=== PATIENT | female | born 1965 | race Caucasian/White ===

== ENCOUNTER 2023-06-02 18:32 | Emergency (ER) | payer OTHER, SELFPAY ==
[2023-06-02 18:45] VITALS: BP 120/86
[2023-06-02 19:20] VITALS: BMI 33.7
[2023-06-02 19:23] VITALS: BP 110/55
[2023-06-02 19:43] LABS: % Basophils 0.4 % (0-2); % Eosinophils 0.3 % (0-6); % Immature Granulocytes 0.1 % (0-0.5); % Monocytes 6.9 % (1.7-9.3); % Neutrophils 59.3 % (42.2-75.2); Absolute Lymphocytes 2.3 10^3/uL (1.2-3.4); Absolute Monocytes 0.5 10^3/uL (0.1-0.6); Absolute Neutrophils 4.2 10^3/uL (1.4-6.5); Hematocrit 43.7 % (37.0-47.0); Hemoglobin 14.9 g/dL (12.0-16.0); Mean Corp Hgb Conc. 34.1 g/dL (33.0-37.0); Mean Corpuscular Hgb 30.4 pg (27.0-31.0); Mean Corpuscular Volume 89.2 fL (81.0-99.0); Mean Platelet Volume 9.8 fL (7.4-10.4); Nucleated Red Blood Cells % 0 %; Platelet Count 226 10^3/uL (130-400); Red Cell Dist. Width 11.8 % (11.5-14.5); White Blood Cell Count 7.1 10^3/uL (4.8-10.8)
[2023-06-02 19:58] LABS: ALT (SGPT) 27 U/L (0-35); AST (SGOT) 33 U/L (14-36); Albumin 4.2 g/dl (3.5-5.0); Alkaline Phosphatase 70 U/L (38-126); Blood Urea Nitrogen 14 mg/dl (7-17); Calcium 9.9 mg/dl (8.4-10.2); Carbon Dioxide 28 mmol/L (22-30); Chloride 101 mmol/L (98-107); Estimated Creatinine Clearance 80 ml/min; Glucose 98 mg/dl (70-99); Potassium 4.4 mmol/L (3.5-5.1); Sodium 137 mmol/L (135-145); Total Bilirubin 0.6 mg/dl (0.2-1.3); Total Protein 7.2 g/dl (6.3-8.2); eGFR > 60.00
[2023-06-02 20:00] VITALS: BP 111/65
[2023-06-02 20:08] LABS: Troponin I < 0.012 ng/ml
--- NOTE | 2023-06-02 20:36 | ED.GENMED ---
History of Present Illness
General
Chief Complaint: Chest Pain
Source: patient
Exam Limitations: none
Time Seen by Provider: 06/02/23 19:49
Travel History
Have you had any contact with someone who has COVID-19?: No
Do you have any symptoms of coronavirus? Fever > 100 degrees, chills, cough, shortness of breath, sore throat, loss of taste or smell, muscle aches, or headache?: No
History of Present Illness
History of Present Illness:
49-year-old female presents with complaints of intermittent fluttering in her chest over the past week. Today was associated with more disc in her neck with lightheadedness. Currently my exam she denies any pain. She states has been under a lot
of stress at work. No abdominal pain. No nausea vomiting. No other complaints at this time. No recent travel or surgery.
Phy Exam
Physical Exam
Physical Exam:
Physical Exam
General: no apparent distress, not acutely ill
Neck: supple. no meningeal signs.
Heart: s1/s2 regular rate and rhythm, no murmur. equal radial pulses.
Lungs: no acute respiratory distress. clear bilaterally
Abdomen: normal bowel sounds. not tender. no CVAT
Neuro: alert and oriented. no focal neurological deficits
Skin: no rash
Psychiatric: well kept. interactive and cooperative
Extremities: no edema. no calf tenderness. negative homans. good distal pulses
Scores
Heart Score for Chest Pain Patients
STEMI patient?: No
History: Slightly or Non-Suspicious
ECG: Normal
Age: >45 - <65 years
Risk Factors: No Risk Factors
Troponin: </= Normal Limit
Heart Score for Chest Pain Patients: 1
Heart Score Risk: 2.5% MACE over next 6 weeks
Course
Orders/Labs/Results
Orders:
Orders
06/02/23 18:36
ECG [Electrocardiogram (*1)] Urgent
Reason for Study: Chest Pain
EKG- Treatment ONCE
06/02/23 19:37
Complete Blood Count/With Diff Urgent
Comprehensive Metabolic Panel Urgent
Troponin I Urgent
06/02/23 19:41
TSH Reflex To Free T4 Urgent
Comment: ADD ON
06/02/23 20:04
CR Chest - 2 Views Urgent
Comment:
Reason For Exam: chest pain
06/02/23 20:05
Add On- LAB Urgent
Tests Added?: tsh reflex to t4
06/02/23 22:04
Troponin I Urgent
06/02/23 19:37
06/02/23 19:37
Vital Signs
Initial and Last Documented VS:
Initial Vital Signs
Temp Pulse Resp BP Pulse Ox
98.2 F 82 16 120/86 98
06/02/23 18:45 06/02/23 18:45 06/02/23 18:45 06/02/23 18:45 06/02/23 18:45
Last Documented Vital Signs
Temp Pulse Resp BP Pulse Ox
98.2 F 74 19 108/74 94
06/02/23 18:45 06/02/23 22:45 06/02/23 22:45 06/02/23 22:04 06/02/23 22:45
MDM/Problems Addressed
Differential Diagnosis Includes:
Palpitations and fluttering with lightheadedness. Differential could include PVCs versus arrhythmia versus stress. She does note neck discomfort. Now is resolved. Do not suspect dissection check troponin for ACS. Chest x-ray pending
*Critical Care Note
Total Time (30-74mins, 75-104mins- exclusive of procedures): Not Applicable
Update Note
Update Note:
Initial and repeat troponin both undetectable. Chest x-ray clear thyroid within normal limits. No arrhythmias on the monitor. Patient remained stable here. Suspect underlying premature beats based on symptoms however none noted on monitor. She
has an appoint with cardiology in 10 days and with her family doctor tomorrow.
ED Attending Note
-
Portions of this chart may have been created with voice recognition software.� Occasional wrong word or��sound alike� substitutions may have occurred due to the inherent limitations of voice recognition software.
Discharge Plan
Departure
Patient Disposition: Home (Routine Discharge)
Date of Disposition: 06/02/23
Time of Disposition: 23:09
Patient with high blood pressure during this ER visit?: No
Discharge Problem:
Heart palpitations
Instructions: Palpitations (DC)
Referrals:
Betina Peña, DO [Family Provider] -
Activity Restrictions/Additional Instructions:
Try to rest. Drink plenty fluids. Avoid caffeine or alcohol. Return for worsening symptoms otherwise continue to follow-up as planned with family doctor and cardiology
Interventions
Interventions:
*Risk Screen - Suicide Last Done: 06/02/23 19:20
*General Assessment Last Done: 06/02/23 19:20
*Neglect/Abuse Screening Last Done: 06/02/23 19:20
ED- Fall Risk Assessment Last Done: 06/02/23 19:20
*ED COVID-19 Vaccine History Last Done: 06/02/23 18:45
ED- Cardiac Assessment Last Done: 06/02/23 19:20
[2023-06-02 21:06] VITALS: BP 128/72
[2023-06-02 22:04] VITALS: BP 108/74
[2023-06-02 22:36] LABS: Troponin I < 0.012 ng/ml
== END 2023-06-02 23:23 | disposition home or self-care (01) ==
LOC: EMR 18:32
PROVIDERS: Physician Assistant; EMERGENCY PHYSICIAN Emergency Medicine; FAMILY PHYSICIAN Family Medicine
DX: R00.2 Palpitations (principal); R07.9 Chest pain, unspecified; R42 Dizziness and giddiness
CPT/HCPCS: 99285; 71046; 80053; 84443; 84484; 85025; 93005